=== PATIENT | female | born 1975 | race Caucasian/White ===

== ENCOUNTER 2019-05-15 11:48 | Emergency (ER) | payer OTHER ==
[2019-05-15] MEDS ORDERED: PHENAZOPYRIDINE 100MG TAB PO ONE (12:25)
[2019-05-15] MEDS ORDERED: TRAMADOL HCL 50 MG TAB ONE (12:25)
[2019-05-15 12:27] LABS: Urine Blood 2+ (NEG); Urine Glucose NEGATIVE (NEG); Urine Protein NEGATIVE (NEG); Urine pH 6.5 (5.0-7.0)
[2019-05-15 12:42] LABS: Urine Bacteria <20 /HPF (<20); Urine Culture Reflex Order REFLEXED; Urine Mucus SLIGHT /HPF (NONE SEEN)
--- NOTE | 2019-05-15 12:57 | ER ---
Nurse's Notes [facility] Name: Karen Herr Age: 44 yrs Sex: Female : 1975 Arrival Date: 05/15/2019 Time: 11:52 Bed 23 Private MD: Diagnosis: Urinary tract infection, site not specified Presentation: 05/15 11:52 Presenting complaint: Patient states: Suprapubic pain since this morning with urinary la1 symptoms, denies N/V/D. Transition of care: patient was not received from another setting of care. Onset of symptoms was May 15, 2019. Risk Assessment: Do you want to hurt yourself or someone else? Patient reports no desire to harm self or others. Initial Sepsis Screen: Does the patient meet any 2 criteria? No. Patient's initial sepsis screen is negative. Does the patient have a suspected source of infection? No. Patient's initial sepsis screen is negative. Care prior to arrival: None. 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 - Social history:: Smoking status: Patient/guardian denies using tobacco. - Ebola Screening: : No symptoms or risks identified at this time. Screenin:11 Abuse screen: Denies threats or abuse. Denies injuries from another. Nutritional aj1 screening: No deficits noted. Tuberculosis screening: No symptoms or risk factors identified. 13:36 Fall Risk None identified. aj1 Assessment: 12:11 General: Appears in no apparent distress. uncomfortable, Behavior is cooperative, aj1 restless. Pain: Complains of pain in groin and suprapubic area Pain currently is 8 out of 10 on a pain scale. Quality of pain is described as sharp, Pain began 3 hours ago. Neuro: Level of Consciousness is awake, alert, obeys commands. Cardiovascular: No deficits noted. Patient's skin is warm and dry. Respiratory: No deficits noted. Airway is patent Respiratory effort is even, unlabored. GI: No signs and/or symptoms were reported involving the gastrointestinal system. : Reports burning with urination, urinary frequency. EENT: No deficits noted. No signs and/or symptoms were reported regarding the EENT system. Derm: No signs and/or symptoms reported regarding the dermatologic system. Skin is pink, warm \T\ dry. Musculoskeletal: No signs and/or symptoms reported regarding the musculoskeletal system. Circulation, motion, and sensation intact. 13:11 Reassessment: Patient appears in no apparent distress at this time. Patient and/or aj1 family updated on plan of care and expected duration. Pain level reassessed. Patient is alert, oriented x 3, equal unlabored respirations, skin warm/dry/pink. Patient states that the tramadol took the edge off her pain. Vital Signs: 11:53 BP 135 / 91; Pulse 77; Resp 16; Temp 98.6; Pulse Ox 100% on R/A; Weight 90.72 kg; la1 Height 5 ft. 7 in. (170.18 cm); 11:53 Body Mass Index 31.32 (90.72 kg, 170.18 cm) la1 ED Course: 11:52 Patient arrived in ED. mr 11:53 Triage completed. la1 11:54 Arm band placed on right wrist. la1 11:56 Dorita Hung FNP-C [facility]. kb 11:56 Michael Benito MD is Attending Physician. kb 11:59 Monica Abreu, GABRIELLE is Primary Nurse. aj1 12:10 Urine Microscopic Only Sent. aj1 12:10 Urine Microscopic Only Sent. aj1 12:11 Patient has correct armband on for positive identification. Call light in reach. aj1 12:11 No provider procedures requiring assistance completed. aj1 13:36 Patient did not have IV access during this emergency room visit. aj1 Administered Medications: 12:29 Drug: traMADol 50 mg {Note: RASS score .} Route: PO; aj1 13:10 Follow up: Response: No adverse reaction; Pain is decreased; RASS: Alert and Calm (0) aj1 12:29 Drug: Pyridium 200 mg Route: PO; aj1 13:10 Follow up: Response: No adverse reaction aj1 13:11 Drug: Macrobid 100 mg Route: PO; aj1 13:35 Follow up: Response: No adverse reaction aj1 Outcome: 12:56 Discharge ordered by . kb 13:36 Discharged to home ambulatory, with family. aj1 13:36 Condition: good 13:36 Discharge instructions given to patient, Instructed on discharge instructions, follow up and referral plans. medication usage, Demonstrated understanding of instructions, follow-up care, medications, Prescriptions given X 2. 13:36 Patient left the ED. aj1 Addendum: 05/18/2019 07:47 Addendum: Culture Results: Positive urine culture. No further action required. Bacteria h b sensitive to prescribed antibiotic. Signatures: Dorita Hung, COMMERCIAL ASSISTANT-C COMMERCIAL ASSISTANT-Ckb Monica Abreu, RN RN aj1 BlackmonDeborah mr TrudyLuke RN RN la1 Alma Delia Cat RN RN
--- NOTE | 2019-05-15 12:57 | EDPHYS ---
Physician Documentation [facility] Name: Karen Herr Age: 44 yrs Sex: Female : 1975 Arrival Date: 05/15/2019 Time: 11:52 Bed 23 Private MD: ED Physician Michael Benito HPI: 05/15 12:58 This 44 yrs old Female presents to ER via Ambulatory with complaints of kb Urinary Problem. 12:58 The patient presents with urinary symptoms, dysuria, frequency. Onset: The kb symptoms/episode began/occurred this morning. Modifying factors: The symptoms are alleviated by nothing, the symptoms are aggravated by urinating. Associated signs and symptoms: Pertinent positives: dysuria, urinary frequency, Pertinent negatives: constipation, cramping, diarrhea, dyspareunia, fever, hematuria, nausea, vaginal bleeding, vaginal discharge, vomiting. Severity of symptoms: At their worst the symptoms were moderate, in the emergency department the symptoms are unchanged. The patient has experienced similar episodes in the past. The patient has not recently seen a physician. 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 - Social history:: Smoking status: Patient/guardian denies using tobacco. - Ebola Screening: : No symptoms or risks identified at this time. ROS: 12:58 Constitutional: Negative for fever, chills, and weight loss, Cardiovascular: Negative kb for chest pain, palpitations, and edema, Respiratory: Negative for shortness of breath, cough, wheezing, and pleuritic chest pain, Abdomen/GI: Negative for abdominal pain, nausea, vomiting, diarrhea, and constipation, Back: Negative for injury and pain, MS/Extremity: Negative for injury and deformity, Skin: Negative for injury, rash, and discoloration, Neuro: Negative for headache, weakness, numbness, tingling, and seizure. 12:58 : Positive for urinary symptoms, urinary frequency, burning with urination. Exam: 12:58 Constitutional: This is a well developed, well nourished patient who is awake, alert, kb and in no acute distress. Head/Face: Normocephalic, atraumatic. Neck: Trachea midline, no thyromegaly or masses palpated, and no cervical lymphadenopathy. Supple, full range of motion without nuchal rigidity, or vertebral point tenderness. No Meningismus. Chest/axilla: Normal chest wall appearance and motion. Nontender with no deformity. No lesions are appreciated. Cardiovascular: Regular rate and rhythm with a normal S1 and S2. No gallops, murmurs, or rubs. Normal PMI, no JVD. No pulse deficits. Respiratory: Lungs have equal breath sounds bilaterally, clear to auscultation and percussion. No rales, rhonchi or wheezes noted. No increased work of breathing, no retractions or nasal flaring. Abdomen/GI: Soft, non-tender, with normal bowel sounds. No distension or tympany. No guarding or rebound. No evidence of tenderness throughout. Back: No spinal tenderness. No costovertebral tenderness. Full range of motion. Skin: Warm, dry with normal turgor. Normal color with no rashes, no lesions, and no evidence of cellulitis. MS/ Extremity: Pulses equal, no cyanosis. Neurovascular intact. Full, normal range of motion. Neuro: Awake and alert, GCS 15, oriented to person, place, time, and situation. Cranial nerves II-XII grossly intact. Motor strength 5/5 in all extremities. Sensory grossly intact. Cerebellar exam normal. Normal gait. Vital Signs: 11:53 BP 135 / 91; Pulse 77; Resp 16; Temp 98.6; Pulse Ox 100% on R/A; Weight 90.72 kg; la1 Height 5 ft. 7 in. (170.18 cm); 11:53 Body Mass Index 31.32 (90.72 kg, 170.18 cm) la1 MDM: 11:57 Patient medically screened. kb 12:56 Data reviewed: vital signs, nurses notes. Data interpreted: Pulse oximetry: on room air kb is 100 %. Interpretation: normal. Counseling: I had a detailed discussion with the patient and/or guardian regarding: the historical points, exam findings, and any diagnostic results supporting the discharge/admit diagnosis, lab results, the need for outpatient follow up, a family practitioner, to return to the emergency department if symptoms worsen or persist or if there are any questions or concerns that arise at home. 05/15 11:57 Order name: Urine Microscopic Only 05/15 11:57 Order name: Urine Microscopic Only; Complete Time: 12:56 EDMS 05/15 12:17 Order name: Urine Dipstick--Ancillary (enter results); Complete Time: 12:30 eb 05/15 12:17 Order name: Urine --Ancillary (enter results); Complete Time: 12:30 eb 05/15 12:45 Order name: Urine Culture [facility] 05/15 11:57 Order name: Urine Test (obtain specimen); Complete Time: 12:10 kb 05/15 11:57 Order name: Urine Dipstick-Ancillary (obtain specimen); Complete Time: 12:10 kb Administered Medications: 12:29 Drug: traMADol 50 mg {Note: RASS score .} Route: PO; aj1 13:10 Follow up: Response: No adverse reaction; Pain is decreased; RASS: Alert and Calm (0) aj 12:29 Drug: Pyridium 200 mg Route: PO; aj1 13:10 Follow up: Response: No adverse reaction aj1 13:11 Drug: Macrobid 100 mg Route: PO; aj1 13:35 Follow up: Response: No adverse reaction aj1 Disposition: 15:10 Co-signature as Attending Physician, Michael Benito MD I agree with the assessment and kdr plan of care. Disposition: 05/15/19 12:56 Discharged to Home. Impression: Urinary tract infection, site not specified. - Condition is Stable. - Discharge Instructions: Urinary Tract Infection, Adult, [id number]. - Prescriptions for Pyridium 200 mg Oral Tablet - take 1 tablet by ORAL route every 8 hours for 3 days; 9 tablet. Macrobid 100 mg Oral Capsule - take 1 capsule by ORAL route every 12 hours for 10 days; 20 capsule. - Medication Reconciliation Form, Thank You Letter, Antibiotic Education, Prescription Opioid Use form. - Follow up: Emergency Department; When: As needed; Reason: Worsening of condition. Follow up: Private Physician; When: 2 - 3 days; Reason: Recheck today's complaints, Continuance of care, Re-evaluation by your physician. Signatures: Dispatcher [employer] [facility] Dorita Hung, TOÑA BARAHONA-Monica Ribeiro RN RN aj1 Rittger, Michael, MD MD kdr Attema, Luke, RN RN la1 Corrections: (The following items were deleted from the chart) 13:36 12:56 05/15/2019 12:56 Discharged to Home. Impression: Urinary tract infection, site aj1 not specified. Condition is Stable. Forms are Medication Reconciliation Form, Thank You Letter, Antibiotic Education, Prescription Opioid Use. Follow up: Emergency Department; When: As needed; Reason: Worsening of condition. Follow up: Private Physician; When: 2 - 3 days; Reason: Recheck today's complaints, Continuance of care, Re-evaluation by your physician. kb
[2019-05-15] MEDS ORDERED: NITROFURAN MACRO 100 MG CAP PO ONE (13:09)
[2019-05-15 13:41] VITALS: BP 135/91; TEMP 98.6; O2SAT 100
== END 2019-05-15 13:36 | disposition home or self-care (01) ==
LOC: ER 11:48
DX: N39.0 Urinary tract infection, site not specified (principal)
CPT/HCPCS: 81003; 81015; 81025; 87077; 87086; 87088; 87186; 99283